=== PATIENT | female | born 1970 | race Caucasian/White ===

== ENCOUNTER → 2021-09-21 14:21 | Outpatient (BNVA) | payer BC, SELFPAY | PROVIDERS: Visit Provider Podiatrist Foot & Ankle Surgery | DX: M79.672 Pain in left foot (principal); M21.612 Bunion of left foot; M21.611 Bunion of right foot | CPT/HCPCS: 73630 ==

== ENCOUNTER 2022-06-07 13:30 | Outpatient (CLI) | payer BC, SELFPAY ==
--- NOTE | 2022-06-07 13:35 | MM_ITS ---
WS: [id number] BILATERAL 3D TOMOSYNTHESIS DIGITAL SCREENING MAMMOGRAPHY WITH CAD CLINICAL INFORMATION: SCREENING HISTORY: Screening mammogram. No current complaints. COMPARISON: February 19, 2021 TECHNIQUE: Bilateral CC and MLO views. FINDINGS: Scattered fibroglandular densities bilaterally. No suspicious focal mass, asymmetry, calcifications, or architectural distortion. No evidence of malignancy. A few incidental punctate calcifications. MM/[place] [id number] IMPRESSION: BI-RADS: 2-Benign FOLLOW UP: 1 Year Follow-up Recommend return to annual screening mammography.
== END 2022-06-07 13:31 | disposition home or self-care (01) ==
LOC: RAD 13:30
PROVIDERS: Visit Provider Family Medicine
DX: Z12.31 Encounter for screening mammogram for malignant neoplasm of breast (principal)
CPT/HCPCS: 77063; 77067

== ENCOUNTER 2023-05-10 13:06 | Outpatient (CLI) | payer OTHER, SELFPAY ==
--- NOTE | 2023-05-10 13:45 | US_ITS ---
WS: [id number] ULTRASOUND SOFT TISSUES LEFT foot HISTORY: Evaluate for Felix neuroma 2nd intermetatarsal space COMPARISON: None available. TECHNIQUE: 2-D and color Doppler imaging is submitted. There is a hypoechoic soft tissue mass in the second intermetatarsal space measuring 3 x 3 mm. This i s in a typical location and position for a Felix neuroma. No increased vascularity IMPRESSION: Findings are suspicious and likely for a Felix neuroma measuring 3 x 3 mm in the second intermetatar claudio space
== END 2023-05-10 13:07 | disposition home or self-care (01) ==
PROVIDERS: PCP Family Medicine; Visit Provider Podiatrist Foot & Ankle Surgery
DX: G57.62 Lesion of plantar nerve, left lower limb (principal)
CPT/HCPCS: 76882

== ENCOUNTER → 2023-05-13 14:54 | Outpatient (BNVA) | payer OTHER, SELFPAY | PROVIDERS: PCP Family Medicine; Visit Provider Family Medicine | DX: I10 Essential (primary) hypertension (principal); F41.8 Other specified anxiety disorders; R06.2 Wheezing; Z13.6 Encounter for screening for cardiovascular disorders; E03.9 Hypothyroidism, unspecified; K02.9 Dental caries, unspecified | CPT/HCPCS: 80053; 80061; 84439; 84443; 85025 ==

== ENCOUNTER → 2023-06-27 14:46 | Outpatient (BNVA) | payer OTHER, SELFPAY | PROVIDERS: PCP Family Medicine; Visit Provider Family Medicine | DX: E89.0 Postprocedural hypothyroidism (principal); Z01.419 Encounter for gynecological examination (general) (routine) without abnormal findings | CPT/HCPCS: 82728; 83550; 84439; 84443; 85025; 87624 ==

== ENCOUNTER 2024-01-03 18:55 | Emergency (ER) | payer OTHER, SELFPAY ==
[2024-01-03 19:41] VITALS: BP 136/93; PULSE 98; RESP 18; TEMP 36.8; O2SAT 90; BMI 41.2
--- NOTE | 2024-01-03 19:55 | XRR_ITS ---
PROCEDURE INFORMATION: Exam: XR Lumbosacral Spine Exam date and time: 01/03/2024 8:11 PM Age: 53 years old Clinical indication: Pain; Sciatica; Left; Additional info: Sciatic pain TECHNIQUE: Imaging protocol: Radiologic exam of the lumbosacral spine. Views: 2 or 3 views. COMPARISON: No relevant prior studies available. FINDINGS: Bones/joints: Multilevel ufce-nt-lxyklbnd disc space narrowing and productive degenerative endplate changes throughout the spine. Soft tissues: Unremarkable. Vasculature: Scattered vascular calcifications. XR/XR lumbar spine 2-3V* [id number] IMPRESSION: 1. Multilevel bbzj-ud-kitcqywz disc space narrowing and productive degenerative endplate changes throughout the spine. 2. Scattered vascular calcifications.
--- NOTE | 2024-01-03 19:55 | XRR_ITS ---
PROCEDURE INFORMATION: Exam: XR Left Hip Exam date and time: 01/03/2024 8:17 PM Age: 53 years old Clinical indication: Hip pain; Left hip TECHNIQUE: Imaging protocol: Radiologic exam of the left hip. Views: 2 or 3 views hip with pelvis when performed. COMPARISON: CR (PELVIS, ) 01/03/2024 8:11 PM FINDINGS: Bones/joints: Mild left hip osteoarthritis. Soft tissues: Unremarkable. XR/XR hip LT 2-3V wo/w pel* [id number] IMPRESSION: 1. No acute findings. 2. Mild left hip osteoarthritis.
--- NOTE | 2024-01-03 20:20 | W.ED.EXTPRO ---
Documented by User: WILMER Wood 01/03/24 22:11 HPI - Extremity Problem General: Chief complaint: Extremity Injury, Lower Stated complaint: pain shooting down leg left side Time Seen by Provider: 01/03/24 19:48 Source: patient Mode of arrival: ambulatory Limitations: no limitations History of Present Illness: Patient is a 53-year-old female who presents to the emergency department complaining of left hip pain onset last couple of days. She does states she had the pain before couple of months ago, and does have a history of sciatica on the right side. She states the pain is to the left hip/posterior buttock region and does radiate down the lateral aspect of her left leg all the way down to the ankle. She just finished a course of prednisone for this, and took Tylenol this morning but is still having pain. She does state that she works at [employer] and is constantly exerting herself by walking up and down a ladder as well as carrying heavy objects. Denies any recent prolonged travel, history of blood clots, or calf pain. No distal neurovascular symptoms reported. No recent injury or trauma. MD Complaint: extremity pain and joint pain Onset (ago): day(s) Pain Consistency: constant Location: left Radiation: distal Relieving factors: nothing Exacerbating factors: weight bearing, walking and exertion Associated symptoms: Deny chest pain, fever(s) or rash Review of Systems General: Reports: 10 or more systems reviewed and unremarkable except in HPI and below Const: Denies: fever(s), chills or fatigue Eyes: Denies: change in vision ENMT: Denies: throat pain, ear or mastoid pain or nasal discharge Card: Denies: chest pain, palpitations, swelling of feet/ankles or lightheadedness Resp: Denies: dyspnea, productive cough or wheezing GI: Denies: abdominal pain, nausea, vomiting, diarrhea or constipation : Denies: flank pain, difficulty voiding, dysuria or urinary frequency Musc: Reports: extremity pain and joint pain; Denies: neck pain or back pain Skin/Breast: Denies: rash Neuro: Denies: headache(s), numbness in extremities or weakness in extremities PFS ED PFSH: Medical History Depression with anxiety GERD (gastroesophageal reflux disease) Hypothyroidism Benign essential HTN Surgical History S/P thyroidectomy S/P cholecystectomy S/P dilatation and curettage Social History Smoking and tobacco/nicotine status: current every day tobacco/nicotine user Physical Exam Const: COMMON NORMALS: no acute distress, patient oriented x3 and no limitations GENERAL APPEARANCE: cooperative, comfortable and well developed NUTRITIONAL APPEARANCE: obese ORIENTATION/CONSCIOUSNESS: Yes awake, Yes oriented to person, Yes oriented to place and Yes oriented to time HENMT: COMMON NORMALS: normocephalic, atraumatic and hearing grossly normal bilaterally HEAD & SCALP: normocephalic and atraumatic Eye: COMMON NORMALS: Equal, round and reactive pupils present, EOMs intact bilaterally and conjunctivae normal CONJUNCTIVA: Yes conjunctivae normal PUPIL: Yes Equal, round and reactive pupils present Neck/C-Spine: COMMON NORMALS: full ROM, supple and no JVD Resp: COMMON NORMALS: normal respiratory effort, No retractions, No use of accessory muscles and clear to auscultation bilaterally AUSCULTATION: clear to auscultation bilaterally Cardio: COMMON NORMALS: no JVD, regular rate, regular rhythm, No clicks present (Cardio), No murmurs present (Cardio) and No rub (Cardio) RATE: regular rate RHYTHM: regular rhythm : COMMON NORMALS: Yes no CVA tenderness BLADDER/KIDNEY EXAM: Yes no CVA tenderness Back/Pelvis: COMMON NORMALS: no CVA tenderness, thoracic and lumbar spine normal to inspection, no thoracic nor lumbar tenderness and thoraco-lumbar ROM normal Extremity: COMMON NORMALS: normal to inspection NARRATIVE EXTREMITY EXAM: Very mild reproducible tenderness palpation about the left lateral hip joint. There is reproducible tenderness to palpation along the left lateral upper leg. No calf tenderness or unilateral edema noted. No distal skin color changes. Neurovascular deficit is intact as she has no sensory changes with 2+ DP/PT pulses. Neuro: COMMON NORMALS: patient oriented x3, moves all extremities, no focal motor deficits and no sensory deficits noted SENSORIUM/ORIENTATION: Yes oriented to person, Yes oriented to place and Yes oriented to time Psych: COMMON NORMALS: mental status grossly normal and Normal thought process present THOUGHT PROCESS: Normal thought process present Skin: COMMON NORMALS: no rashes or lesions noted GENERAL SKIN EXAM: no rashes or lesions noted Course Vital Signs: Vital signs: Vital Signs Temperature 98.2 F 01/03/24 19:41 Pulse Rate 98 01/03/24 19:41 Respiratory Rate 18 01/03/24 19:41 Blood Pressure 136/93 01/03/24 19:41 Pulse Oximetry 90 01/03/24 19:41 Oxygen Delivery Me thod Room Air 01/03/24 19:41 MDM - Extremity (Nontraumatic) Medical Decision Making Patient presents with onset of left hip pain radiates down her left leg. States that she has a strenuous occupation at [employer] where she is constantly lifting things, believes this may have caused her pain. Vitals on arrival unremarkable and physical examination revealed some mild tenderness palpation of the left hip joint. However she did have an antalgic gait and did appear uncomfortable on exam. X-ray of the left hip and lumbar spine did not reveal any acute findings. She did just finished a course of prednisone, however here in the emergency department I did give her a shot of Decadron, Norflex, and Toradol. On recheck she states she feels better but still has exacerbation of pain with movement. Will send home with prescription of muscle relaxers and encouraged her to follow-up with primary care for any further imaging such as an MRI. She will continue to take her pain medications at home and strict return precautions given. Work note also provided. Lab Data Radiology Impressions Hip/Pelvis X-Ray 01/03/24 19:55 IMPRESSION: 1. No acute findings. 2. Mild left hip osteoarthritis. Lumbar Spine X-Ray 01/03/24 19:55 IMPRESSION: 1. Multilevel btek-ju-iwzdqxvb disc space narrowing and productive degenerative endplate changes throughout the spine. 2. Scattered vascular calcifications. Laboratory Results D-Dimer 0.42 ug/mLFEU (0-0.59) 01/03/24 20:53 All radiology interpretation(s) finalized by discharge Discharge Plan Discharge Patient Disposition: Home Clinical Impression: Strain of left hip Qualifiers: Encounter type: initial encounter Qualified Code(s): S76.012A - Strain of muscle, fascia and tendon of left hip, initial encounter Condition: Stable Prescriptions: New methocarbamol 750 mg tablet 750 mg PO Q8H 5 Days Qty: 15 0RF No Action cyclobenzaprine 10 mg tablet 10 mg PO TID nystatin 100,000 unit/gram cream 1 applic topical DAILY potassium 99 mg tablet PO omeprazole 40 mg capsule,delayed release(DR/EC) 40 mg PO DAILY albuterol sulfate 2.5 mg /3 mL (0.083 %) solution for nebulization 2.5 mg inhalation QID PRN (Reason: shortness of breath or wheezing) Qty: 180 0RF albuterol sulfate 90 mcg/actuation HFA aerosol inhaler 2 puff inhalation 6XD Qty: 8.5 2RF lisinopril 20 mg tablet 20 mg PO DAILY Qty: 90 1RF triamcinolone acetonide 0.1 % cream 1 applic topical BID Qty: 80 0RF glucosamine-chondroitin 900 mg tablet PO hydrocodone-acetaminophen 5-325 mg tablet 1 tab PO BID PRN (Reason: pain) 7 Days Qty: 14 0RF prednisone 20 mg tablet 40 mg PO DAILY Qty: 10 0RF Rx Instructions: Take in the AM with food levothyroxine 125 mcg tablet 125 mcg PO DAILY Qty: 90 1RF duloxetine 30 mg capsule,delayed release(DR/EC) See Rx Instructions .ROUTE .COMPLEX Qty: 30 0RF Dose Instruction: Take 1 capsule by mouth once daily Rx Instructions: Take 1 capsule by mouth once daily Discharge Orders: Discharge ED (Routine); Ordered 01/03/24 Ordered By: Kulwinder Powers Referrals: Deena Alvarez DO [Primary Care Provider] - Discharge Diet: Usual diet Discharge Activity: Increase activity as tolerated Patient Instructions: Hip Pain (ED) Activity Restrictions/Additional Instructions: Gentle range of motion exercises as tolerated. Take muscle relaxers and continue pain medications at home. Ice/heat for added relief. Please follow-up with primary care for any further evaluation. Return with any new or worsening symptoms that you may have. Stand Alone Forms: Work/School Release Coding Level of Care Code ED [employer] Documented by User: Fredy Pastrana DO 01/04/24 05:19 HPI - Extremity Problem General: Chief complaint: Extremity Injury, Lower Stated complaint: pain shooting down leg left side Time Seen by Provider: 01/03/24 19:48 [facility] ED PFSH: Medical History Depression with anxiety GERD (gastroesophageal reflux disease) Hypothyroidism Benign essential HTN Surgical History S/P thyroidectomy S/P cholecystectomy S/P dilatation and curettage Social History Smoking and tobacco/nicotine status: current every day tobacco/nicotine user Course Vital Signs: Vital signs: Vital Signs Temperature 98.2 F 01/03/24 19:41 Pulse Rate 98 01/03/24 19:41 Respiratory Rate 18 01/03/24 19:41 Blood Pressure 136/93 01/03/24 19:41 Pulse Oximetry 90 01/03/24 19:41 Oxygen Delivery Me thod Room Air 01/03/24 19:41 MDM - Extremity (Nontraumatic) Medical Decision Making Patient presents with onset of left hip pain radiates down her left leg. States that she has a strenuous occupation at [employer] where she is constantly lifting things, believes this may have caused her pain. Vitals on arrival unremarkable and physical examination revealed some mild tenderness palpation of the left hip joint. However she did have an antalgic gait and did appear uncomfortable on exam. X-ray of the left hip and lumbar spine did not reveal any acute findings. She did just finished a course of prednisone, however here in the emergency department I did give her a shot of Decadron, Norflex, and Toradol. On recheck she states she feels better but still has exacerbation of pain with movement. Will send home with prescription of muscle relaxers and encouraged her to follow-up with primary care for any further imaging such as an MRI. She will continue to take her pain medications at home and strict return precautions given. Work note also provided. Chart reviewed Lab Data Radiology Impressions Hip/Pelvis X-Ray 01/03/24 19:55 IMPRESSION: 1. No acute findings. 2. Mild left hip osteoarthritis. Lumbar Spine X-Ray 01/03/24 19:55 IMPRESSION: 1. Multilevel mwuz-wg-fnskskds disc space narrowing and productive degenerative endplate changes throughout the spine. 2. Scattered vascular calcifications. Laboratory Results D-Dimer 0.42 ug/mLFEU (0-0.59) 01/03/24 20:53 Discharge Plan Discharge Patient Disposition: Home Clinical Impression: Strain of left hip Qualifiers: Encounter type: initial encounter Qualified Code(s): S76.012A - Strain of muscle, fascia and tendon of left hip, initial encounter Condition: Stable Prescriptions: New methocarbamol 750 mg tablet 750 mg PO Q8H 5 Days Qty: 15 0RF No Action cyclobenzaprine 10 mg tablet 10 mg PO TID nystatin 100,000 unit/gram cream 1 applic topical DAILY potassium 99 mg tablet PO omeprazole 40 mg capsule,delayed release(DR/EC) 40 mg PO DAILY albuterol sulfate 2.5 mg /3 mL (0.083 %) solution for nebulization 2.5 mg inhalation QID PRN (Reason: shortness of breath or wheezing) Qty: 180 0RF albuterol sulfate 90 mcg/actuation HFA aerosol inhaler 2 puff inhalation 6XD Qty: 8.5 2RF lisinopril 20 mg tablet 20 mg PO DAILY Qty: 90 1RF triamcinolone acetonide 0.1 % cream 1 applic topical BID Qty: 80 0RF glucosamine-chondroitin 900 mg tablet PO hydrocodone-acetaminophen 5-325 mg tablet 1 tab PO BID PRN (Reason: pain) 7 Days Qty: 14 0RF prednisone 20 mg tablet 40 mg PO DAILY Qty: 10 0RF Rx Instructions: Take in the AM with food levothyroxine 125 mcg tablet 125 mcg PO DAILY Qty: 90 1RF duloxetine 30 mg capsule,delayed release(DR/EC) See Rx Instructions .ROUTE .COMPLEX Qty: 30 0RF Dose Instruction: Take 1 capsule by mouth once daily Rx Instructions: Take 1 capsule by mouth once daily Discharge Orders: Discharge ED (Routine); Ordered 01/03/24 Ordered By: Kulwinder Powers Referrals: Deena Alvarez DO [Primary Care Provider] - Discharge Diet: Usual diet Discharge Activity: Increase activity as tolerated Patient Instructions: Hip Pain (ED) Activity Restrictions/Additional Instructions: Gentle range of motion exercises as tolerated. Take muscle relaxers and continue pain medications at home. Ice/heat for added relief. Please follow-up with primary care for any further evaluation. Return with any new or worsening symptoms that you may have. Stand Alone Forms: Work/School Release Coding Level of Care Code ED [employer] for [employer]
[2024-01-03] MEDS: dexamethasone 10 mg/mL INJ IM (20:22)
[2024-01-03] MEDS: ketorolac 60 mg/2 mL INJ IM (20:23)
[2024-01-03] MEDS: orphenadrine 30 mg/mL Inj 2 mL 60 MG IM (20:24)
[2024-01-03 21:35] LABS: D Dimer 0.42 ug/mLFEU (0-0.59)
== END 2024-01-03 22:15 | disposition home or self-care (01) ==
PROVIDERS: Emergency Provider Physician Assistant; PCP Family Medicine
DX: S76.012A Strain of muscle, fascia and tendon of left hip, initial encounter (principal); I10 Essential (primary) hypertension; Z72.0 Tobacco use; X50.9XXA Other and unspecified overexertion or strenuous movements or postures, initial encounter; Y99.0 Civilian activity done for income or pay
CPT/HCPCS: 72100; 73502; 85378; 96372; 99284; J1100; J1885; J2360

== ENCOUNTER → 2024-02-07 09:44 | Outpatient (BNVA) | payer OTHER, SELFPAY | PROVIDERS: PCP Family Medicine; Visit Provider Orthopaedic Surgery | DX: M54.6 Pain in thoracic spine (principal); M47.816 Spondylosis without myelopathy or radiculopathy, lumbar region | CPT/HCPCS: 72110 ==

== ENCOUNTER 2024-03-12 07:39 | Outpatient (CLI) | payer OTHER, SELFPAY ==
--- NOTE | 2024-03-12 08:00 | MR_ITS ---
WS: [id number] MRI LUMBAR SPINE WITH AND WITHOUT CONTRAST HISTORY: Back Pain, no lumbar spine surgery. COMPARISON: None available. TECHNIQUE: Sagittal and axial multisequence imaging is submitted. Post MultiHance 20 mL. Mild straightening of the normal lumbar lordosis. 2 mm retrolisthesis of L4 and L5. No fractures or m arrow edema. Disc spaces and vertebral body heights are well-preserved. Conus terminates normally at L1-2 disc level. L1-L2: Normal. L2-L3: Mild annular disc bulging effacing the ventral CSF. Mild central and bilateral subarticular re cess and foraminal stenosis. L3-L4: Mild annular disc bulging with a shallow LEFT foraminal disc protrusion and annular fissure. M ild encroachment and effacement of the ventral CSF. Mild ligamentum flavum and facet arthritis. Mild to moderate central with bilateral subarticular recess encroachment mild bilateral foraminal narrowin g. There is just slightly greater encroachment upon the LEFT L3 and L4 nerve roots. L4-L5: Moderate annular disc bulging with mild osteophytic ridging. Ligamentum flavum and facet arthr itis is moderate. Fluid in the facet joints. There is disc encroachment upon the ventral thecal sac a nd subarticular recesses. Broad-based LEFT paracentral and foraminal disc protrusion moderate central and bilateral subarticular recess and foraminal stenosis. There is significant contact and deformity on the LEFT traversing L5 nerve root. L5-S1: Mild disc bulging with a central disc protrusion. Facet arthritis is mild to moderate. Shallow LEFT foraminal disc osteophyte. There is slight disc contact on the traversing S1 nerve roots. Moder ate LEFT foraminal stenosis due to disc and osteophyte disease. No discitis or osteomyelitis. No mass identified. MR/MR lumbar spine wo/w con [id number] IMPRESSION: 1. Multilevel areas of stenosis throughout the lumbar spine. 2. L4-5: Broad-based LEFT paracentral and proximal foraminal disc protrusion. Degenerative changes are resulting in moderate central with bilateral subarticu lar recess and foraminal stenosis. There is significant disc osteophyte extendi ng to the LEFT contacting the LEFT traversing L5 nerve root. 3. L5-S1: Moderate LEFT foraminal stenosis due to disc and osteophyte disease. There is a shallow LEFT foraminal disc protrusion. 4. L3-4: Mild to moderate central with bilateral subarticular recess and monica inal stenosis. Slightly greater contact upon the LEFT L3 and L4 nerve roots. 5. No discitis or osteomyelitis.
[2024-03-12] MEDS: gadobenate dimeglumine 20 mL vial IV (08:15)
== END 2024-03-12 07:40 | disposition home or self-care (01) ==
LOC: RAD 07:39
PROVIDERS: PCP Family Medicine; Visit Provider Orthopaedic Surgery
DX: M48.061 Spinal stenosis, lumbar region without neurogenic claudication (principal); M51.26 Other intervertebral disc displacement, lumbar region; M25.78 Osteophyte, vertebrae; M99.64 Osseous and subluxation stenosis of intervertebral foramina of sacral region
CPT/HCPCS: 72158; A9577

== ENCOUNTER 2024-03-21 10:25 | Outpatient (RCR) | payer OTHER, SELFPAY | END 2024-04-06 23:59 | disposition home or self-care (01) | LOC: SPT 10:25 | PROVIDERS: Visit Provider Orthopaedic Surgery | DX: M54.50 Low back pain, unspecified (principal) | CPT/HCPCS: 97110; 97161 ==

== ENCOUNTER → 2024-03-29 15:46 | Outpatient (BNVA) | payer OTHER, SELFPAY | PROVIDERS: Visit Provider Orthopaedic Surgery | DX: Z01.818 Encounter for other preprocedural examination (principal) | CPT/HCPCS: 80053; 81001; 85025 ==

== ENCOUNTER 2024-11-26 09:52 | Outpatient (CLI) | payer BC, MEDICAID, SELFPAY ==
--- NOTE | 2024-11-26 10:04 | FL_ITS ---
WS: [id number] Exam: FL barium swallow modifd [id number] Date/Time of Exam: 11/26/2024 10:17 AM Reason For Exam: Other dysphagia Fluoroscopy time: 3min [id number] minutes # of spot films: 0 Modified barium swallow test was performed in conjunction with the speech therapy service. Oral pharyngeal phase of swallowing was normal. The patient tolerated all consistencies of barium mixture foodstuffs without penetration or aspiration. The patient swallowed a barium tablet which passed readily into the stomach without complication. FL/FL barium swallow modifd [id number] IMPRESSION: 1. Unremarkable modified barium swallow test. A separate report and recommendations will follow from the speech therapy servi ce.
[2024-11-26 11:10] LABS: Basophils # 0.1 10^3/uL (0.0-0.1); Basophils % 1.3 %; Eosinophils # 0.1 10^3/uL (0.0-0.8); Hematocrit 36.9 % (36-47); Lymphocytes # 1.4 10^3/uL (0.8-4.8); Lymphocytes % 36.8 %; Mean Corpuscular HGB Conc 30.4 g/dL (30-55); Mean Corpuscular Hemoglobin 24.3 pg (27-33); Mean Platelet Volume 9.6 fL (7.4-10.4); Monocytes # 0.3 10^3/uL (0.2-0.9); Monocytes % 9.1 %; Neutrophils # 1.83 10^3/uL (1.8-7.7); Neutrophils % 49.3 %; Nucleated Red Blood Cells % 0 %; Platelet Count 265 10^3/cmm (157-399); Red Blood Count 4.61 10^6/uL (3.85-5.65); Red Cell Distribution Width 14.3 % (12.1-15.1); White Blood Count 3.72 10^3/uL (3.29-11.43)
[2024-11-26 11:26] LABS: Anion Gap 14.7 (5-19); Blood Urea Nitrogen 16 mg/dL (6-20); Calcium 9.5 mg/dL (8.5-10.5); Carbon Dioxide 28 mmol/L (22-29); Chloride 100 mmol/L (98-107); Glucose 91 mg/dL (65-115); Osmolality Calculated 289 mOsm/kg (285-295); Potassium 3.7 mmol/L (3.5-5.1); Sodium 139 mmol/L (136-145)
== END 2024-11-26 09:53 | disposition home or self-care (01) ==
PROVIDERS: Visit Provider Otolaryngology
DX: Z01.818 Encounter for other preprocedural examination (principal); J38.02 Paralysis of vocal cords and larynx, bilateral; Z93.0 Tracheostomy status; R13.10 Dysphagia, unspecified; R93.1 Abnormal findings on diagnostic imaging of heart and coronary circulation; R93.89 Abnormal findings on diagnostic imaging of other specified body structures
CPT/HCPCS: 36415; 74230; 80048; 85025; 92611; 93005